=== PATIENT | female | born 1975 | race African-American/Black ===

== ENCOUNTER 2020-03-18 08:38 | Emergency (ER) | payer MEDICAID ==
[~2020-03-18] VITALS: Ht 172.7 cm; Wt 65.0 kg
[2020-03-18 09:00] VITALS: BP 148/89
== END 2020-03-18 10:07 | disposition home or self-care (01) ==
LOC: ER 08:38
DX: S60.221A Contusion of right hand, initial encounter (principal); M77.9 Enthesopathy, unspecified; M25.531 Pain in right wrist; M65.4 Radial styloid tenosynovitis [de Quervain]; W01.0XXA Fall on same level from slipping, tripping and stumbling without subsequent striking against object, initial encounter; Y93.89 Activity, other specified; Y92.89 Other specified places as the place of occurrence of the external cause
CPT/HCPCS: 29125; 73110; 73130; 99284

== ENCOUNTER 2020-06-27 10:11 | Emergency (ER) | payer MEDICAID ==
[~2020-06-27] VITALS: Ht 373.4 cm; Wt 68.0 kg
[2020-06-27] MEDS ORDERED: IBUP-2029 MT (11:28)
[2020-06-27] MEDS ORDERED: IBUPROFEN 600MG TABLET PO ONE (11:30)
[2020-06-27 11:54] VITALS: BP 153/83
== END 2020-06-27 11:56 | disposition home or self-care (01) ==
LOC: ER 10:11
DX: M25.531 Pain in right wrist (principal)
CPT/HCPCS: 99282

== ENCOUNTER 2021-10-05 13:04 | Emergency (ER) | payer MEDICAID, OTHER ==
[~2021-10-05] VITALS: Ht 175.3 cm; Wt 68.0 kg
[~2021-10-05 13:04] MED LIST: IBUP-2029 MT
[2021-10-05] MEDS ORDERED: KETOROLAC 15MG/ML VIAL IM ONE (14:30)
[2021-10-05] MEDS ORDERED: NAPR-681 MT (15:38)
[2021-10-05 15:58] VITALS: BP 136/77
== END 2021-10-05 16:03 | disposition home or self-care (01) ==
LOC: ER 13:04
DX: S52.615A Nondisplaced fracture of left ulna styloid process, initial encounter for closed fracture (principal); W01.0XXA Fall on same level from slipping, tripping and stumbling without subsequent striking against object, initial encounter; Y93.9 Activity, unspecified; Y92.9 Unspecified place or not applicable
CPT/HCPCS: 29125; 73110; 73130; 96372; 99284; J1885